=== PATIENT | female | born 2000 | race Caucasian/White ===

== ENCOUNTER 2022-07-15 19:29 | Outpatient (CLI) | payer OTHER, SELFPAY ==
--- NOTE | 2022-07-24 12:35 | W.PM.SLEEP ---
Sleep Study Details Details Interpreting Provider: Joaquim Baltazar MD Date of Sleep Study: 07/15/22 Sleep Study Details: STUDY TYPE:? Home ? BMI:? 23.8 ORDERING PROVIDER:? Rony INDICATION:? Concerns about sleep apnea ? SLEEP SUMMARY:? 401 minutes monitored RESPIRATORY SUMMARY:? AHI 2.7, supine AHI 3.2, right lateral AHI 0.5 Low oxygen 83 7.5% of the study oxygen less than 90% and 7.5% of study oxygen less than 85% snoring 0 PERIODIC LIMB MOVEMENTS OF SLEEP:? Not recorded CARDIAC:? 23-107, mean 73.2 IMPRESSION:? Bradycardia was noted during the study with a heart rate as low as 23 during sleep in 22 during time in bed. Further cardiac evaluation may be indicated No significant obstructive sleep apnea was indicated. If sleep disorder is strongly suspected an in-lab study may be indicated Significant desaturations were noted given that there was no apnea recorded so further per cardiopulmonary evaluation is definitely indicated. RECOMMENDATION: []
== END 2022-07-15 19:30 | disposition home or self-care (01) ==
LOC: SLEEP 19:29
PROVIDERS: PCP Family Medicine; Visit Provider Otolaryngology
DX: G47.30 Sleep apnea, unspecified (principal); G47.00 Insomnia, unspecified
CPT/HCPCS: 95806

== ENCOUNTER 2022-07-18 08:53 | Outpatient (CLI) | payer OTHER, SELFPAY ==
--- NOTE | 2022-07-18 09:00 | CRLHL7_ITS ---
For Patients: As a result of the Century Cures Act, medical imaging exams and procedure reports are released immediately into your electronic medical record. You may view this report before your referring provider. If you have questions, please contact your health care provider. Indication: Sinusitis Technique: Performed without IV contrast Comparison: None available Findings: Frontal sinuses: 1.4 cm mucous retention cyst right frontal sinus with associated mild mucosal thickening. Trace mucosal thickening left frontal sinus. Ethmoid sinuses: Mild mucus within the posterior left ethmoid sinus. Clear right ethmoid sinus. Maxillary sinuses: Mucous retention cysts are present within the maxillary sinuses, left greater than right. On the left, the mucous retention cysts measure up to 2.3 cm. On the right, the mucous retention cysts measure up to 1 cm. Mild mucosal thickening is also present within the left maxillary sinus. The maxillary sinus drainage pathways are patent on both sides. Sphenoid sinuses: Clear, including both sphenoethmoidal recesses. Nasal Cavity: Nasal septum is midline. No polyps. No TMJ abnormalities identified. The visualized portions of the orbits, intracranial contents and upper soft tissue neck are grossly negative. Impression: 1. Bilateral sinus disease with several mucous retention cysts particularly within the left maxillary sinus. Sinus drainage pathways are patent. 2. Midline nasal septum. Please note that all CT scans at this facility use dose modulation, iterative reconstruction, and/or weight-based dosing when appropriate to reduce radiation dose to as low as reasonably achievable. Dictated by Neymar Henson MD @ 07/18/2022 10:30:29 AM (Electronically Signed)
== END 2022-07-18 08:54 | disposition home or self-care (01) ==
PROVIDERS: PCP Family Medicine; Visit Provider Otolaryngology
DX: J32.9 Chronic sinusitis, unspecified (principal); J32.0 Chronic maxillary sinusitis
CPT/HCPCS: 70486

== ENCOUNTER 2023-11-13 09:02 | Outpatient (CLI) | payer OTHER, SELFPAY | END 2023-11-13 09:03 | disposition home or self-care (01) | LOC: NFLDREF 09:04 | PROVIDERS: PCP Family Medicine; Visit Provider Family Medicine | DX: R30.0 Dysuria (principal) | CPT/HCPCS: 87086 ==

== ENCOUNTER 2023-11-20 08:30 | Outpatient (CLI) | payer OTHER, SELFPAY | END 2023-11-20 08:31 | disposition home or self-care (01) | LOC: NFLDREF 12-10 12:12 | PROVIDERS: PCP Family Medicine; Referring Provider Family Medicine; Visit Provider Family Medicine | DX: Z00.00 Encounter for general adult medical examination without abnormal findings (principal); F33.42 Major depressive disorder, recurrent, in full remission; Z13.6 Encounter for screening for cardiovascular disorders; Z13.9 Encounter for screening, unspecified | CPT/HCPCS: 80053; 80061 ==

== ENCOUNTER 2023-11-21 08:03 | Outpatient (CLI) | payer OTHER, SELFPAY ==
[2023-11-21 12:24] LABS: Chlamydia DNA Amplified* NOT DETECTED (No Detected); GC DNA Amplified* NOT DETECTED (No Detected)
== END 2023-11-21 08:04 | disposition home or self-care (01) ==
LOC: NFLDREF 08:03
PROVIDERS: PCP Family Medicine; Visit Provider Family Medicine
DX: Z11.3 Encounter for screening for infections with a predominantly sexual mode of transmission (principal)
CPT/HCPCS: 87491; 87591

== ENCOUNTER 2025-04-27 16:55 | Outpatient (CLI) | payer OTHER, SELFPAY | END 2025-04-27 16:56 | disposition home or self-care (01) | LOC: NFLDREF 04-29 17:59 | PROVIDERS: PCP Family Medicine; Referring Provider Family Medicine; Visit Provider Nurse Practitioner Family | DX: N76.0 Acute vaginitis (principal); B96.89 Other specified bacterial agents as the cause of diseases classified elsewhere | CPT/HCPCS: 87086 ==